=== PATIENT | female | born 1995 | race Caucasian/White ===

== ENCOUNTER 2018-12-04 09:06 | Inpatient (IN) | payer OTHER ==
[2018-12-04] VITALS (19 sets, daily range): BP systolic 82–106; BP diastolic 31–54
[~2018-12-04] VITALS: Ht 165.1 cm; Wt 55.2 kg
[~2018-12-04 09:06] MED LIST: ACETAMINOPHEN-1 EAC1 PO; CIPRO500 MG PO; IBUPROFEN 600600 M1 PO; ONDANSETRON HCL4 M2 PO; PHENAZOPYRIDIN200 M2 PO
[2018-12-04 10:13] LABS: ABSOLUTE EOSINOPHILS 0.3 thou/uL (0.0-0.7); ABSOLUTE NEUTROPHILS 3.7 thou/uL (1.6-8.1); BASOPHILS 0.5 %; EOSINOPHILS 3.6 %; HEMATOCRIT 45.3 % (37.0-47.0); HEMOGLOBIN 15.8 gm/dL (12.0-15.0); LYMPHOCYTES 44.5 %; MCH 30.2 pg (26.0-34.0); MCV 86.2 fL (80.0-100.0); MONOCYTES 11.1 %; MPV 9.7 fl. (7.2-11.1); NUCLEATED RBCS 1 /100WBC; PLATELET COUNT* 239 thou/uL (150-400); POLYS 40.3 %; RBC 5.25 mil/uL (4.20-5.00); RDW-CV 12.8 % (10.5-14.5); WBC 9.1 thou/uL (4.0-11.0)
[2018-12-04 10:29] LABS: CALCIUM 9.3 mg/dL (8.5-10.1)
[2018-12-04 10:32] LABS: INR 1.3; PROTIME 12.9 Seconds (9.20-11.50)
[2018-12-04 10:36] LABS: URINE BILIRUBIN NEGATIVE (Negative); URINE BLOOD NEGATIVE (Negative); URINE CLARITY CLEAR; URINE COLOR YELLOW; URINE GLUCOSE-RANDOM NEGATIVE (Negative); URINE KETONES NEGATIVE (Negative); URINE LEUKOCYTES-REFLEX NEGATIVE (Negative); URINE NITRITE-REFLEX NEGATIVE (Negative); URINE PROTEIN NEGATIVE (Negative); URINE SPECIFIC GRAVITY >= 1.030 (1.005-1.030); URINE UROBILINOGEN 0.2 E.U./dl (0.2-1.0)
[2018-12-04 10:39] LABS: ALBUMIN 3.5 g/dL (3.4-5.0); TOTAL BILIRUBIN 1.6 mg/dL (<0.1-1.0); TOTAL PROTEIN 7.8 g/dL (6.4-8.2)
[2018-12-04 10:52] LABS: INFLUENZA A ANTIGEN None Detected (None Detect); INFLUENZA B ANTIGEN None Detected (None Detect)
[2018-12-04 11:49] LABS: AMP/METHAMP Negative (Negative); BARBITURATES Negative (Negative); BENZODIAZEPINES Negative (Negative); COCAINE Negative (Negative); METHADONE Negative (Negative); OPIATES Negative (Negative); PCP Negative (Negative); THC Negative (Negative)
--- NOTE | 2018-12-04 12:00 | NUR ---
PT HAS SIGNED CONSENT FOR CENTRAL LINE PLACEMENT. PLACED IN CHART
[2018-12-04 12:19] LABS: CALCIUM 10.6 mg/dL (8.5-10.1); CREATININE 1.8 mg/dL (0.6-1.3); MAGNESIUM 2.6 mg/dL (1.8-2.4); POTASSIUM 5.3 mmol/L (3.5-5.1)
[2018-12-04 12:37] LABS: BE -5.8 mmol/L (-2 to +3); PCO2 31.1 mmHg (35.0-45.0); pH 7.382 (7.340-7.450)
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
--- NOTE | 2018-12-04 18:42 | NUR ---
PT STARTED ON LEVOPHED GTT AT 5ML/H FOR BP 70'S/30'S. PT DROWSEY. PLACED ON FLUID RESTRICTION. IVF INCREASED TO 75ML/HR. MARROQUIN TO DD WITH GOOD OUTPUT. DENIES PAIN. SLOW TO PROGRESS TOWARDS GOALS.
[2018-12-05] VITALS (32 sets, daily range): BP systolic 74–130; BP diastolic 27–109
--- NOTE | 2018-12-05 04:41 | NUR ---
PT C/O ABD CRAMPING. HYPERACTIVE BOWEL SOUNDS. UP TO BSC MULTIPLE TIMES DURING SHIFT. LIQUID TO SOFT GREEN/YELLOW/BROWNISH IN COLOR STOOLS. KAEXELATE GIVEN AT HS ORDERED. PT STATES ABD CRAMPING FEELS LIKE "ROLLING GAS IN MY STOMACH" REQESTED SOMETHING FOR ABD CRAMPING RELIEF, NEW ORDERS RECEIVED FOR SIMETHICONE 80MG PO CHEWABLE TABS QID PRN FOR GAS PAIN, WILL COMMUNICATE NEW ORDERS WITH PT AND INITATE ORDERED.
--- NOTE | 2018-12-05 07:00 | NUR ---
PROGRESSING TOWARDS GOALS, RESTING QUIELTY WITH EYES CLOSED INTERMITTENTLY DURING NOC, USING CALL LIGHT FOR ALL NEEDS INCLUDING OOB TO BSC, SIMETHICONE GIVEN X1 HELPFUL FOR ABD CRAMPING, LEVOPHED GTT CONTINUES TO VIA INFUSION PUMP, C/O INTERMITTENT DIZZYNESS WITH RAPID CHANGE IN POSITONS SUCH SITTING UP OR STANDING THAT RESOLVES IMMEDITALY WITH REST. NA TRENDING UP FROM 121 TO 125 THIS AM, KAEXELATE PO GIVEN PER ORDER HELPFUL DECREASING SERUM POTASSIUM LEVEL FROM 5.8 TO 5.1 THIS AM. C/O FEELING COLD MOST OF SHIFT, MULTIPLE BLANKETS INCLUIDNG FREQUENT WARM BLANKETS PROVIDED, AFEBRILE, DENIES NAUSEA, N NO VOMITING, TOLERATING PO LIQUIDS, NS CONTINUES 75CC/HR VIA INFUSION PUMP. AWAKE, ALERT AND CONVERSATIVE WITH AM, USING CELL PHONE UPDATING SPOUSE POC. DENIES NEEDS AT PRESENT TIME, CALL LIGHT REMAINS IN REACH.
--- NOTE | 2018-12-05 14:13 | EKG ---
[place] [address] ELECTROCARDIOGRAM REPORT Name: JOEY TALLEY Room: [address] ADM IN M.R.#: [id number] Admission: 12/04/18 Attend Phys: Jose Sebastian MD Discharge: Date of : [birth year] Report #: [id number] THIS REPORT FOR: //name// [facility] ED Test Date: 2018-12-04 Test Time: 09:49:36 Pat Name: JOEY TALLEY Department: Room: [facility] Gender: F Sort Manager: DAVID : [id number] Requested By: Debra Cazares Order Number: [id number] MD: Tito Craig Measurements Intervals Delphi Rate: 88 P: 0 WY: 59 QRS: 80 QRSD: 119 T: -73 QT: 479 QTc: 580 Interpretive Statements Sinus rhythm Short WY interval Nonspecific intraventricular conduction delay Low voltage, precordial leads Probable anteroseptal infarct, old Nonspecific T abnormalities, inferior and anterior leads No previous ECG available for comparison Electronically Signed On 12-05-2018 14:13:10 LOGISTICAL ENGINEER by Tito Craig [email or web address] <ELECTRONICALLY SIGNED> By: Tito Craig MD, [facility] 12/05/18 1413 0949 0949 Tito Craig MD, [facility] /EPI
--- NOTE | 2018-12-05 14:35 | NUR ---
NOTIFIED THIS MORNING BY DR MCCALLUM THAT PT NEEDS TRANSFER TO [facility] FOR ENDCRINOLGIST. CALLED [facility] TRANSFER TEAM THIS MORNING [phone]. RECEIVED CALL FROM [facility] TRANSFER TEAM, PT HAS BEEN ACCEPTED AT [facility] [address], DR FRITZ MARIE ADMITTING PHYSICIAN. PT GOING TO [facility] ICU 6. NURSING HAS CALLED REPORT. PT AND MOTHER NOTIFIED. CHART IS COPIED TO GO WITH PT. RADIOLOGY NOTIFIED TO PUT ALL IMAGES ON THE CLOUD FOR [facility]. AMBULANCE CALLED FOR TRANSFER.
--- NOTE | 2018-12-05 15:51 | NUR ---
RECEIVED REPORT FROM LATRELL CARRERO. ASSESSMENT CHARTED. AFEBRILE. PT ON LEVO GTT DURING AM REPORT. VITALS STABLE AT THIS TIME.
--- NOTE | 2018-12-05 15:52 | NUR ---
PT WILL TRANSFER TO [facility] ON [address]. TITRATING LEVO TO MAINTAIN BP. LABS DRAWN. REPORT GIVEN TO CHAY AT [facility] ON [facility]. ALL QUESTIONS ANSWERED. PT WILL GO TO MED/SURG ICU RM 6. EMS ARRIVED TO TRANSPORT PT AROUND 1500. FAMILY UPDATED ON PLAN OF CARE.
--- NOTE | 2018-12-06 10:07 | CON ---
[address] [address] CONSULTATION Name: JOEY TALLEY Room: [address] IN M.R.#: [id number] Admission: 12/04/18 Attend Phys: Jose Sebastian MD Discharge: 12/05/18 Date of : [birth year] Report #: [id number] THIS REPORT FOR: //name// CC: NAYELI physician/PCP Jose Sebastian DATE OF SERVICE: 12/05/2018 REQUESTING PHYSICIAN: Dr. Sebastian REASON FOR CONSULTATION: Hyponatremia, acute kidney injury, hyperkalemia. HISTORY OF PRESENT ILLNESS: The patient is a 23-year-old female, who presents to the hospital with complaints of generalized weakness, numbness, and slurred speech. The patient never had these problems before and the only past medical history she reported was hypothyroidism that was diagnosed several years ago, but she did not follow with a doctor and did not take her medications. In the Emergency Room, she was found to be hyponatremic with sodium of 120, hyperkalemic, potassium was 6. Her cortisol level was less than 0.1 and her TSH level was 49. So, we were consulted. I have discussed this case with Dr. Sebastian. Obviously, she has polyglandular autoimmune syndrome and she was appropriately started on IV Solu-Cortef. She feels better; however, still requires some pressors. Her potassium improved, it is down to 5.1. Her creatinine came down to 1.4 from 2.0. Calcium is normal. PAST MEDICAL HISTORY: As mentioned earlier, hypothyroidism, untreated. FAMILY HISTORY: No problems with any endocrine problems, no renal problems. SOCIAL HISTORY: She smokes about half-a-pack a day. She has one child. REVIEW OF SYSTEMS: Positive for the symptoms I mentioned earlier, otherwise all other systems were reviewed and negative. PHYSICAL EXAMINATION: GENERAL: Awake, alert, oriented, in no acute distress now. VITAL SIGNS: Blood pressure is 98/51, she is on Levophed. Heart rate is 101, respirations 12, afebrile. HEENT: Pupils are round. NECK: Supple. LUNGS: Clear. CARDIOVASCULAR: Regular rate. ABDOMEN: [place] [address] CONSULTATION Name: JOEY TALLEY Room: [address] IN ..#: [id number] Admission: 12/04/18 Attend Phys: Jose Sebastian MD Discharge: 12/05/18 Date of : [birth year] Report #: [id number] EXTREMITIES: Lower extremities with no edema. ASSESSMENT: 1. Piatt's Disease team, autoimmune etiology. 2. Hyponatremia due to Piatt. 3. Hyperkalemia due to Baron. 4. Acute kidney injury due to volume depletion. 5. Hypotension due to Piatt. PLAN: Continue with Solu-Cortef IV and thyroid replacement. Eventually, the patient will need to be switched to p.o. hydrocortisone and then hydrocortisone will need to be slowly tapered down and then Flonase will need to be added. I will continue with thyroid replacement. The patient needs to have legislative director on board, she is only 23. Unfortunately, we do not have an legislative director here, so we will arrange transfer to a hospital where inpatient Endocrinology consultation is available. I spent more than 35 minutes in the care of this patient, discussing with Dr. Sebastian and with ICU nurse. Thank you very much for asking my opinion on hyponatremia, hyperkalemia, and acute kidney injury on the patient. <ELECTRONICALLY SIGNED> By: Gasper Adan MD 12/06/18 1007 1036 [id number] Adan MD /nt
== END 2018-12-05 15:00 | disposition short-term general hospital (02) | DRG 683 ==
LOC: M.ERS 09:06 → M.TBA-ER 11:03 → M.ICU 11:03
PROVIDERS: Personal Emergency Response Attendant
PROC: 02HV33Z Insertion of Infusion Device into Superior Vena Cava, Percutaneous Approach (ICD-10-PCS; principal; 2018-12-04)
DX: N17.9 Acute kidney failure, unspecified (principal); E87.1 Hypo-osmolality and hyponatremia; E27.1 Primary adrenocortical insufficiency; I95.9 Hypotension, unspecified; E03.9 Hypothyroidism, unspecified; F17.210 Nicotine dependence, cigarettes, uncomplicated; E87.5 Hyperkalemia; E86.9 Volume depletion, unspecified; E79.0 Hyperuricemia without signs of inflammatory arthritis and tophaceous disease; Z28.21 Immunization not carried out because of patient refusal; Z88.0 Allergy status to penicillin